=== PATIENT | female | born 1970 | race Caucasian/White ===

== ENCOUNTER → 2017-09-24 | Outpatient (CLI) | payer OTHER ==
[2017-09-24 14:31] LABS: PLATELET COUNT, AUTOMATED 267 K/uL (150-450)
--- NOTE | 2017-09-24 14:56 | EKG ---
[place] [facility] [place] NAME: CAESAR RINCON : [id number] MR: [id number] V: [id number] EXAM DATE: ORDERING PHYSICIAN: BECCA HARRY TECHNOLOGIST: Test Reason : Blood Pressure : / mmHG Vent. Rate : 090 BPM Atrial Rate : 090 BPM P-R Int : 144 ms QRS Dur : 082 ms QT Int : 386 ms P-R-T Axes : 045 051 050 degrees QTc Int : 472 ms Normal sinus rhythm Normal ECG No previous ECGs available Confirmed by TONO GIL ([id number]) on 09/24/2017 8:03:51 PM Referred By: Confirmed By:TONO GIL
--- NOTE | 2017-09-24 15:00 | RADIOLOGY IMAGING REPORT ---
FACILITY: [facility] PATIENT NAME: Betty Alcocer : 1970 MR: [id number] V: [id number] EXAM DATE: [id number] ORDERING PHYSICIAN: NATE HARRY TECHNOLOGIST: Location: [facility] - [place] Patient: Betty Alcocer : 1970 Visit/Account:[id number] Date of Sevice: 09/24/2017 Exam type: CHEST PA AND LAT History: Chest pain, dyspnea x3 days Comparison: None. Findings: The lungs are free of acute effusions, infiltrates or edema. Cardiac silhouette is normal in size. Trachea is in midline. There is no evidence of a pneumothorax or pneumomediastinum. IMPRESSION: 1. No acute cardiac pulmonary process is seen Report Dictated By: Maria Alejandra Cuenca MD at 09/24/2017 2:54 PM Report E-Signed By: Maria Alejandra Cuenca MD at 09/24/2017 2:56 PM WSN:[email or web address]
== END ==
LOC: LAB 14:10
PROVIDERS: ATTEND Nurse Practitioner Family
DX: R07.9 Chest pain, unspecified (principal); R06.00 Dyspnea, unspecified; R09.1 Pleurisy
CPT/HCPCS: 36415; 71046; 82040; 82247; 82310; 82374; 82435; 82565; 82947; 84075; 84132; 84155; 84295; 84443; 84450; 84460; 84484; 84520; 85025; 85379; 93005

== ENCOUNTER → 2018-06-30 | Outpatient (CLI) | payer OTHER ==
[2018-06-30 08:36] LABS: PLATELET COUNT, AUTOMATED 248 K/uL (150-450)
--- NOTE | 2018-06-30 08:42 | EKG ---
FACILITY: [facility] - [place] PATIENT NAME: CAESAR RINCON : [id number] MR: [id number] V: [id number] EXAM DATE: ORDERING PHYSICIAN: BECCA HARRY TECHNOLOGIST: INA Test Reason : HIGH BP CHECK UP Blood Pressure : / mmHG Vent. Rate : 081 BPM Atrial Rate : 081 BPM P-R Int : 156 ms QRS Dur : 082 ms QT Int : 390 ms P-R-T Axes : 068 066 068 degrees QTc Int : 453 ms Normal sinus rhythm Normal ECG When compared with ECG of 24-SEP-2017 14:37, No significant change was found Confirmed by CARLOS EDUARDO MCDANIEL ([id number]) on 06/30/2018 9:03:30 PM Referred By: KAMRYN Confirmed By:CARLOS EDUARDO MCDANIEL
--- NOTE | 2018-06-30 08:59 | RADIOLOGY IMAGING REPORT ---
FACILITY: [facility] PATIENT NAME: Betty Alcocer : 1970 MR: [id number] V: [id number] EXAM DATE: ORDERING PHYSICIAN: NATE HARRY TECHNOLOGIST: [place] [facility] [place] : 1970 Visit/Account:[id number] Date of Sevice: 06/30/2018 Exam type: CHEST PA LAT History: Chest pain, chronic cough x1 month Comparison: September 24, 2017 Findings: The lungs are free of acute effusions, infiltrates or edema. There is no evidence of a pneumothorax or pneumomediastinum. Cardiac silhouette is normal in size. The trachea is in midline.. IMPRESSION: 1. No acute cardiopulmonary process is seen Report Dictated By: Maria Alejandra Cuenca MD at 06/30/2018 8:53 AM Report E-Signed By: Maria Alejandra Cuenca MD at 06/30/2018 8:55 AM WSN:[email or web address]
[2018-06-30 09:09] LABS: LDL CHOLESTEROL 100 mg/dl
== END ==
LOC: LAB 08:14
PROVIDERS: ATTEND Nurse Practitioner Family
DX: R07.9 Chest pain, unspecified (principal); R05 Cough; I10 Essential (primary) hypertension; Z68.30 Body mass index [BMI] 30.0-30.9, adult
CPT/HCPCS: 36415; 71046; 82040; 82247; 82310; 82374; 82435; 82465; 82565; 82947; 83718; 84075; 84132; 84155; 84295; 84443; 84450; 84460; 84478; 84520; 85025; 93005